=== PATIENT | female | born 1955 | race Caucasian/White ===

== ENCOUNTER 2020-10-26 15:12 | Outpatient (CLI) | payer BC ==
[2020-10-27 01:49] LABS: SARS-CoV-2 PCR by NAA Not Detected (NotDetected)
== END 2020-10-26 15:13 | disposition home or self-care (01) ==
LOC: CSHLAB 15:12
PROVIDERS: ATTEND Physical Medicine & Rehabilitation
DX: Z20.822 Contact with and (suspected) exposure to COVID-19 (principal)
CPT/HCPCS: 87635; U0003; U0005